=== PATIENT | male | born 1945 | race Caucasian/White ===

== ENCOUNTER 2020-05-21 15:26 | Outpatient (CLI) | payer MEDICARE, OTHER, SELFPAY ==
--- NOTE | ~2020-05-21 | MR_ITS ---
EXAMINATION: MR lumbar spine wo con, MR thoracic spine wo con DATE: 05/21/2020 16:52 INDICATION: Back pain. Lumbar radiculopathy. TECHNIQUE: 1. Magnetic resonance imaging (MRI) of the thoracic spine was performed without intravenous contrast. Sagittal localizer T1-weighted FSE of the cervicothoracic spine was obtained. Sequences included sag ittal T2-weighted FSE, sagittal fluid sensitive FSE STIR, sagittal T1-weighted FSE and axial T2-weigh tamir FSE. 2. MRI of the lumbar spine was performed without intravenous contrast. Sequences included sagittal T2 -weighted FSE, sagittal T2-weighted FS FSE, sagittal T1-weighted FSE, and axial T2-weighted FSE. COMPARISON: None FINDINGS: Thoracic spine: 2 mm retrolisthesis C6 on C7. 1 mm anterolisthesis of T2 on T3.. Unchanged mild vertebral body height loss from T7 through L1 with Schmorl's nodes along many of the endplates between the superior endpla te of T7 and the superior endplate of L3. There a somewhat heterogeneous pattern of red and yellow ma rrow with more focal T1 hyperintense fibrovascular degenerative endplate changes anteriorly at the in ferior endplates of T10-T12 and at anterior superior endplate of T11. Moderate disc height loss at T8 -T9 and mild disc height loss at the majority of the remaining levels in the thoracic spine. Mild dis c bulge T1-T2. Small right paracentral disc extrusion resulting in mild central canal stenosis at T2- T3. Tiny nearly imperceptible disc protrusions at multiple levels from T3-T4 through T7-T8. Small chuyita tral disc extrusion at T8-T9 with mild central canal stenosis and mild indentation of the ventral dom face of the cord at this level. Mild disc bulge at T10-T11 and T11-T12 resulting in mild central flor l stenosis. Multilevel mild to moderate bilateral thoracic facet osteoarthritis. There is moderate ne ural foraminal stenosis on the left at T10-T11 and on the right at T5-T6. Mild neural foraminal steno sis on both the left and the right at the majority of the remaining levels relatively sparing T3-T4 a nd T4-T5. Spinal cord signal intensity is normal. Lumbar spine: Unchanged 3 mm retrolisthesis L2 on L3 and 4 mm retrolisthesis L3 on L4. Unchanged mild anterior wedg ing at L1 with Schmorl's nodes along the superior endplates of L1-L3. Additional fibrovascular degene rative endplate changes most prominent at L4-L5 and L5-S1. Interval progression of now mild to modera te disc height loss at T12-L1, moderate disc height loss at L4-L5 and moderate to severe disc height loss at L5-S1. Unchanged mild to moderate disc height loss at L1-L2 and mild disc height loss at L2-L 3 and L3-L4. There are annular fissures at L2-L3 through L5-S1. The conus medullaris terminates at L1 -L2. There is normal signal in the caudal spinal cord. Paravertebral soft tissues are unremarkable. T he following disc levels are specifically discussed: T12-L1: Disc is bulging. There is mild bilateral facet joint osteoarthritis. There is mild bilateral neural foraminal stenosis. There is mild central canal stenosis. L1-L2: Disc is mildly bulging. There is minimal bilateral facet joint osteoarthritis. There is no alfredo ral foraminal stenosis. There is no central canal stenosis. L2-L3: Moderate diffuse disc bulge. There is mild to moderate bilateral facet joint osteoarthritis. T here is mild to moderate bilateral neural foraminal stenosis. There is mild central canal stenosis. L3-L4: Moderate diffuse disc bulge. There is mild bilateral facet joint osteoarthritis. There is mild to moderate bilateral neural foraminal stenosis. There is mild to moderate central canal stenosis. L4-L5: Moderate diffuse disc bulge. There is hypertrophy of the ligamentum flavum. There is severe b ilateral facet joint osteoarthritis. There is moderate left and moderate to severe right neural tomeka inal stenosis. There is moderate central canal stenosis with small amount of CSF
== END 2020-05-21 15:27 | disposition home or self-care (01) ==
LOC: ANHIMG 15:28
PROVIDERS: PCP Emergency Medicine; Visit Provider Psychiatry & Neurology Neurology
DX: M54.16 Radiculopathy, lumbar region (principal); M54.9 Dorsalgia, unspecified; M47.816 Spondylosis without myelopathy or radiculopathy, lumbar region; M47.814 Spondylosis without myelopathy or radiculopathy, thoracic region
CPT/HCPCS: 72146; 72148

== ENCOUNTER 2021-12-30 16:13 | Emergency (ER) | payer MEDICARE, OTHER, SELFPAY ==
--- NOTE | ~2021-12-30 | XR_ITS ---
EXAMINATION: XR ribs LT 2V Exam Date/Time: 12/30/2021 17:15 CDT HISTORY: rib pain s/p fall injury X 5 DAYS, PAIN TO MID LATERAL SIDE Comparison: 09/06/2015. RESULT: Lines, tubes, and devices: None. Lungs and pleura: Senescent change in the lungs, otherwise clear. Cardiothymic silhouette: Stable. Other: No acute osseous or upper abdominal finding. Thoracic scoliosis. Degenerative change in the t horacic spine and shoulder. Splenic artery calcifications. IMPRESSION: No acute osseous finding in the left ribs. Reviewed, dictated and finalized at location K.
--- NOTE | ~2021-12-30 | CT_ITS ---
EXAMINATION: CT brain wo con DATE: 12/30/2021 17:27 INDICATION: head injury . TECHNIQUE: Computed tomography (CT) of the head was performed without intravenous contrast. The mA wa s adjusted according to patient size. Iterative reconstruction technique was employed. The dose-lengt h product was 681.00 mGy-cm. COMPARISON: None FINDINGS: No acute intracranial hemorrhage. Prominent bilateral extra-axial spaces measuring up to 5 mm. No hydrocephalus, mass, or herniation. No acute ischemic infarct. Unremarkable dural venous sinus attenuation. No acute osseous abnormality. The aerated spaces are clear. Moderate atrophy and chronic white matter change. Atherosclerotic intracranial calcification. Small f ocal right basal ganglia and left thalamic lacunar infarcts. Left basal ganglia calcification. IMPRESSION: No acute intracranial process. Prominent bilateral extra-axial spaces, may reflect chronic subdurals, or cystic hygromas. Reviewed, dictated and finalized at [facility]. IMPRESSION: No acute intracranial process. Prominent bilateral extra-axial spaces, may refl ect chronic subdurals, or cystic hygromas.
--- NOTE | ~2021-12-30 | CT_ITS ---
EXAMINATION: CT cervical spine wo con DATE: 12/30/2021 17:29 INDICATION: head injury TECHNIQUE: Computed tomography (CT) of the cervical spine was performed without intravenous contrast. Automated exposure control and iterative reconstruction technique were employed. The dose-length pro duct was 306.29 mGy-cm. COMPARISON: None FINDINGS: Vertebral Body Alignment: Reversed lordosis centered at C5-6. 2 mm anterolisthesis at C3-4. Craniocervical and atlantoaxial alignment: Moderate degenerative change. Alignment intact. Osseous structures/fracture: No evidence of a lytic or blastic process in the visualized spine. No e vidence of acute fracture. Cervical soft tissues: The paraspinal soft tissues planes are maintained. Degenerative changes: Severe degenerative disc disease at C5-6 and C6-7. Severe left neural foraminal narrowing at C6-7. No severe central canal narrowing. Multilevel facet arthropathy. IMPRESSION: No acute fracture or traumatic malalignment in the cervical spine. Grade 1 anterolisthesis at C3-4, p resumably chronic and related to degenerative change. Reviewed, dictated and finalized at location K. IMPRESSION: No acute fracture or traumatic malalignment in the cervical spine. Grade 1 ante rolisthesis at C3-4, presumably chronic and related to degenerative change.
--- NOTE | ~2021-12-30 | XR_ITS ---
EXAM: XR elbow RT min 3V DATE: 12/30/2021 17:24 HISTORY: elbow pain s/p fall X 5 DAYS, ABRASION TO POSTERIOR AREA . COMPARISON: None available. FINDINGS: Normal mineralization. No fracture or dislocation. No lytic or blastic lesion. Old lateral epicondylar avulsion versus fractured lateral enthesophyte. Mild degenerative change in the elbow maria del rosario int. Olecranon enthesopathy. No erosion or periosteal change. Soft tissues within normal limits. IMPRESSION: No acute osseous finding in the right elbow. Reviewed, dictated and finalized at location K.
[2021-12-30 16:17] VITALS: BP 169/71; PULSE 58; RESP 18; TEMP 36.9; O2SAT 100
--- NOTE | 2021-12-30 17:23 | ED.FALL ---
HPI - Fall General Chief Complaint: Fall Stated Complaint: glf tuesday, rt head/elbow, pcp want ct Time Seen by Provider: 12/30/21 16:50 History of Present Illness HPI Narrative: 76-year-old male presents emergency room for evaluation of head injury sustained in a fall 4 days ago. Patient states he was staying at a friend's house in [place], where he slid down 4 stairs, landing on his right elbow right side of his head and then onto his left side of his ribs.. Related Data Home Medications Medication Instructions Recorded Confirmed aspirin 81 mg chewable tablet 81 mg PO DAILY 12/19/19 02/06/21 atorvastatin 10 mg tablet 10 mg PO .COMPLEX 12/19/19 02/06/21 folic acid 400 mcg tablet 0.4 mg PO .COMPLEX 12/19/19 02/06/21 multivitamin,tx-minerals 1 tablet PO DAILY 12/19/19 02/06/21 omega 5-rxb-dqd-fish oil 1,200 mg See Rx Instructions .Route .COMPLEX 12/19/19 02/06/21 (144 mg-216 mg) capsule (Fish Oil) Allergies Allergy/AdvReac Type Severity Reaction Status Date / Time No Known Allergies Allergy Verified 12/30/21 16:14 Review of Systems Review of Systems: CONSTITUTIONAL: Denies fever, chills, or sweats. EYES: Denies visual changes, redness, or discharge. ENT: Denies rhinorrhea, congestion, sore throat, or otalgia. CARDIOVASCULAR: Denies chest pain, palpitations, or edema. RESPIRATORY: Denies cough or dyspnea. GASTROINTESTINAL: Denies abdominal pain, nausea, vomiting, or diarrhea. GENITOURINARY: Denies dysuria or hematuria. SKIN: Denies rash or itching. MUSCULOSKELETAL: Reports right elbow and left lateral rib cage pain NEUROLOGIC: Denies headache, numbness, dizziness, or weakness. PSYCHIATRIC: Denies anxiety or depression. FORMERLY [facility] Past Medical History Medical History Arthritis Asthma Chicken pox Heart disease HLD (hyperlipidemia) HTN (hypertension) Surgical History Surgical History History of heart artery stent (~07/30/02) History of tonsillectomy (~1950) History of vasectomy (~1989) Family History Family History Father , 92 No problems noted. Mother , 94 No problems noted. Sibling Cancer Sibling Head injury Social History Social History Social History: 2-3 Cups per day Smoking status: Never smoker Alcohol intake: former Alcohol use details: Stopped drinking all alcohol in December 1995. Just wanted to stop. Did not enjoy it anymore. Plus taking medications Substance use: never Additional occupation/education comments: Retired from [email or web address] Gender identity (if verbalized by the patient): Male Sexual Orientation (if Verbalized by the Patient): Straight or Heterosexual Exam Narrative: GENERAL: Well-appearing, well-nourished, no physical limitations, and in no acute distress. HEAD: Normocephalic, area of healing ecchymosis to the right scalp EYES: Conjunctivae normal, PERRLA and EOMI. ENT: External nose normal, Nares clear, no rhinorrhea or epistaxis. Mucous membranes moist. Oropharynx without tonsillar hypertrophy exudate or other lesions. External ears normal, bilateral TMs normal bilaterally. Hearing aids bilaterally NECK: Supple. CHEST: Clear to auscultation. No respiratory distress. No wheezes rales or rhonchi. No tenderness. HEART: Regular rate and rhythm. No murmur heard. Normal peripheral pulses. BACK: No cervical/thoracic/lumbar tenderness, step-offs, bony abnormality; FROM. Tenderness to the left lateral rib cage, no ecchymosis, no obvious flail chest. EXTREMITIES: Normal range of motion. No edema. No clubbing or cyanosis. Tenderness with mild soft tissue swelling over the right lateral epicondyle. SKIN: Warm, dry, no rash. No noted wounds NEURO: No focal deficits. Alert and oriented x3. MAEW. CN's II-XI intact bilaterally
[2021-12-30 17:50] VITALS: BP 165/81; PULSE 62; RESP 20; O2SAT 100
== END 2021-12-30 17:55 | disposition home or self-care (01) ==
PROVIDERS: Emergency Provider Nurse Practitioner Family; PCP Emergency Medicine
DX: S09.90XA Unspecified injury of head, initial encounter (principal); S50.01XA Contusion of right elbow, initial encounter; S20.222A Contusion of left back wall of thorax, initial encounter; E78.5 Hyperlipidemia, unspecified; I11.9 Hypertensive heart disease without heart failure; J45.909 Unspecified asthma, uncomplicated; M19.90 Unspecified osteoarthritis, unspecified site; Z95.5 Presence of coronary angioplasty implant and graft; Z79.82 Long term (current) use of aspirin; W10.9XXA Fall (on) (from) unspecified stairs and steps, initial encounter
CPT/HCPCS: 70450; 71100; 72125; 73080; 99284

== ENCOUNTER → 2022-01-21 08:20 | Outpatient (CLI) | payer MEDICARE, OTHER, SELFPAY ==
--- NOTE | ~2022-01-21 | MR_ITS ---
EXAMINATION: MR brain IAC wo con DATE: 01/21/2022 09:09 INDICATION: Head injury. TECHNIQUE: Magnetic resonance imaging (MRI) of the brain, brainstem, and internal auditory canals was performed without intravenous contrast. COMPARISON: Head CT 12/30/2021 FINDINGS: There are scattered areas of nonspecific increased T2-weighted signal intensity in the cere bral white matter and marcell, which is within normal limits for the patient's age. There is an old lacu sheyla infarct in right caudate nucleus. There is a right frontoparietal subdural hematoma with maximum thickness of 17 mm. There is 3 mm leftward midline shift measured at the foramen of Monro. There is n o acute ischemic infarct or abnormal mass lesion. The orbits are normal. There is mild mucosal thicke raji in the paranasal sinuses. There is a trace left mastoid effusion. IMPRESSION: 1. Right frontoparietal subdural hematoma with maximum thickness of 17 mm, worsened from 6 mm on 12/19. 2. 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 Reviewed, dictated and finalized at location A. IMPRESSION: 1. Right frontoparietal subdural hematoma with maximum thickness of 17 mm, wors ened from 6 mm on 12/30/2021. 2. 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
== END ==
PROVIDERS: PCP Psychiatry & Neurology Neurology; Visit Provider Emergency Medicine
DX: S09.90XA Unspecified injury of head, initial encounter (principal); S06.5XAA Traumatic subdural hemorrhage with loss of consciousness status unknown, initial encounter; Z86.73 Personal history of transient ischemic attack (TIA), and cerebral infarction without residual deficits
CPT/HCPCS: 70551

== ENCOUNTER 2022-01-21 16:33 | Emergency (ER) | payer MEDICARE, OTHER, SELFPAY ==
[2022-01-21] VITALS (9 sets, daily range): BP systolic 134–169; BP diastolic 61–74; PULSE 52–59; RESP 12–21; TEMP 36.3; O2SAT 99–100
--- NOTE | 2022-01-21 16:44 | ED.NEUROSD ---
HPI - Neuro Symptoms/Deficit General Chief Complaint: Neuro Symptoms/Deficit Stated Complaint: brain bleed Time Seen by Provider: 01/21/22 16:44 Source: patient Mode of arrival: ambulatory Limitations: no limitations History of Present Illness HPI Narrative: Patient is a 76-year-old male with a history of hypertension, hyperlipidemia, presenting to the emergency department for evaluation of intracranial hemorrhage. Patient had a fall while he was on vacation in [place] on 12/26. This was a witnessed fall where he misstepped, causing him to slide down a staircase, and hit his head on the step. Patient did not lose consciousness. Patient was evaluated by paramedics, was noted to have a normal neurological exam and ultimately patient did not wish to be transferred for evaluation in an emergency department. Patient then presented to our emergency department on December 30 where he had a CT head that was read as negative for intracranial hemorrhage. Patient followed up with his primary care physician who had ordered a brain MRI given some chronic foot drop for which the patient follows with neurology, and patient was noted to have a subdural hemorrhage with 6 mm of midline shift. Patient denies any focal numbness or weakness. No difficulty with speech. No facial droop. Patient denies vision changes, nausea, vomiting. He is on a daily aspirin, no anticoagulation. Related Data Home Medications Medication Instructions Recorded Confirmed aspirin 81 mg chewable tablet 81 mg PO DAILY 12/19/19 02/06/21 atorvastatin 10 mg tablet 10 mg PO .COMPLEX 12/19/19 02/06/21 folic acid 400 mcg tablet 0.4 mg PO .COMPLEX 12/19/19 02/06/21 multivitamin,tx-minerals 1 tablet PO DAILY 12/19/19 02/06/21 omega 3-nog-ebx-fish oil 1,200 mg See Rx Instructions .Route .COMPLEX 12/19/19 02/06/21 (144 mg-216 mg) capsule (Fish Oil) Allergies Allergy/AdvReac Type Severity Reaction Status Date / Time No Known Allergies Allergy Verified 01/06/22 09:25 Review of Systems Review of Systems: CONSTITUTIONAL: Denies fever, chills, or sweats. EYES: Denies visual changes, redness, or discharge. ENT: Denies rhinorrhea, congestion, sore throat, or otalgia. CARDIOVASCULAR: Denies chest pain, palpitations, or edema. RESPIRATORY: Denies cough or dyspnea. GASTROINTESTINAL: Denies abdominal pain, nausea, vomiting, or diarrhea. GENITOURINARY: Denies dysuria or hematuria. SKIN: Denies rash or itching. MUSCULOSKELETAL: Denies back pain, joint pain, or myalgia. NEUROLOGIC: Denies headache, numbness, or weakness. COUNT INCLUDES THE [facility] Past Medical History Medical History Arthritis Asthma Chicken pox Heart disease HLD (hyperlipidemia) HTN (hypertension) Surgical History Surgical History History of heart artery stent (~07/30/02) History of tonsillectomy (~1949) History of vasectomy (~1989) Family History Family History Father , 92 No problems noted. Mother , 94 No problems noted. Sibling Cancer Sibling Head injury Social History Social History Social History: 2-3 Cups per day Smoking status: Never smoker Alcohol intake: former Alcohol use details: Stopped drinking all alcohol in December 1995. Just wanted to stop. Did not enjoy it anymore. Plus taking medications Substance use: never Additional occupation/education comments: Retired from [employer] Gender identity (if verbalized by the patient): Male Sexual Orientation (if Verbalized by the Patient): Straight or Heterosexual Exam Narrative: GENERAL: Awake, alert, conversant HEAD: Normocephalic, atraumatic. EYES: PERRLA and EOMI. ENT: Nares clear, no rhinorrhea or epistaxis. Mucous membranes moist. NECK: Supple. CHEST: No respiratory distress, breathing audi
[2022-01-21 17:30] LABS: Basophils Percent Auto 0.3 % (0.2-1.2); Eosinophils Absolute Auto 0.1 K/mm3 (0-0.3); Eosinophils Percent Auto 1.6 % (0-4.4); Hematocrit 38.9 % (42.0-52.0); Hemoglobin 13.2 g/dL (14.0-18.0); Immature Granulocyte Absolute 0.01 K/mm3 (0.00-0.031); Immature Granulocyte Percent A 0.2 % (0-0.5); Lymphocytes Absolute Auto 1.53 K/mm3 (0.9-3.2); Lymphocytes Percent Auto 26.7 % (18.3-44.2); Mean Corpuscular HGB Conc 33.9 g/dl (32-36); Mean Corpuscular Hemoglobin 32.1 pg (26-34); Mean Corpuscular Volume 94.6 fl (80-100); Mean Platelet Volume 9.4 fl (7.4-10.4); Monocytes Absolute Auto 0.3 K/mm3 (0.1-0.6); Monocytes Percent Auto 5.9 % (2.6-8.5); Neutrophils Absolute Auto 3.7 K/mm3 (1.3-6.7); Neutrophils Percent Auto 65.3 % (45.5-73.1); Platelet Count Result 157 k/mm3 (150-375); Red Blood Count 4.11 M/mm3 (4.6-6.20); Red Cell Distribution Width 12.4 % (11.5-14.5); White Blood Count 5.7 K/mm3 (4.5-10.0)
[2022-01-21 17:41] LABS: Anion Gap 9 mmol/L (8-16); Blood Urea Nitrogen 23 mg/dL (9-20); Calcium 8.9 mg/dL (8.4-10.2); Carbon Dioxide 26 mmol/L (22-30); Chloride 102 mmol/L (98-107); Estimated CRCL calculation 62 ml/min; Estimated Glomerular Filt Rate > 60; Glucose 125 mg/dL (65-110); Potassium 3.9 mmol/L (3.4-5.0); Sodium 137 mmol/L (137-145)
[2022-01-21 17:48] LABS: INR 1.2; Prothrombin Time 15.2 Seconds (11.1-14.7)
--- NOTE | 2022-01-21 17:54 | PC.NURSE ---
[facility] accepted ALS transfer to [facility] ER ETA 9:15p-9:30p
[2022-01-21 18:18] LABS: SARS-CoV-2 RNA PCR Negative
--- NOTE | 2022-01-21 19:53 | PC.NURSE ---
spoke with BRAYDEN wade at [facility] ER, she is aware of ETA.
--- NOTE | 2022-01-21 21:06 | PC.NURSE ---
patient transferred to [facility] with IV in place and on imaging assistant. patient gait steady and ambulated to stretcher independently. [facility] ER aware that patient en route
== END 2022-01-21 21:06 | disposition short-term general hospital (02) ==
PROVIDERS: Emergency Provider Emergency Medicine; PCP Psychiatry & Neurology Neurology
DX: S06.5X0A Traumatic subdural hemorrhage without loss of consciousness, initial encounter (principal); I10 Essential (primary) hypertension; E78.5 Hyperlipidemia, unspecified; Z20.822 Contact with and (suspected) exposure to COVID-19; W10.9XXA Fall (on) (from) unspecified stairs and steps, initial encounter
CPT/HCPCS: 36415; 80048; 85025; 85610; 85730; 99291; U0003; U0005

== ENCOUNTER → 2022-09-22 09:57 | Outpatient (CLI) | payer MEDICARE, OTHER, SELFPAY ==
--- NOTE | ~2022-09-22 | XR_ITS ---
Thoracic spine: Clinical Indication: Back pain AP and lateral views were performed. No fracture is seen. There is normal alignment of the vertebrae. The intervertebral disc spaces appe ar normal. Paravertebral soft tissues appear normal. Impression: No significant abnormalities noted. Reviewed, dictated and finalized at [facility]. Impression: No significant abnormalities noted.
--- NOTE | ~2022-09-22 | XR_ITS ---
Lumbosacral Spine: AP and lateral views Clinical History: Pain Findings: Questionable mild compression deformity of L2. There is 5 mm retrolisthesis of L2 over L3. There is severe facet arthropathy L4-L5 and L5-S1. There is severe degenerative disc narrowing L5-S1. There is mild to moderate degenerative disc narrowing at the remaining lumbar levels. The sacroiliac joints are normally outlined. Impression: Questionable mild compression deformity of L2. 5 mm retrolisthesis of L2 over L3. Moderate to advanced degenerative spondylosis, as above. Reviewed, dictated and finalized at location M. Impression: Questionable mild compression deformity of L2. 5 mm retrolisthesis of L2 over L3. Moderate to advanced degenerative spondylosis, as above.
== END ==
PROVIDERS: PCP Emergency Medicine; Visit Provider Emergency Medicine
DX: M47.816 Spondylosis without myelopathy or radiculopathy, lumbar region (principal); M54.9 Dorsalgia, unspecified; S39.92XA Unspecified injury of lower back, initial encounter; M54.30 Sciatica, unspecified side
CPT/HCPCS: 72070; 72100